=== PATIENT | female | born 1995 ===

== ENCOUNTER 2016-10-14 03:42 | Emergency (ER) | payer MEDICAID ==
[2016-10-14 04:09] VITALS: BMI 22.6
--- NOTE | 2016-10-14 04:40 | OBHP ---
Datetime: 10/14/2016 04:35 IP Adm Impression: Term, intrauterine IP Admit Plan: Discharge home Admit Comment, IP Provider: 21 y/o @ 39.5 wks recevies pnc at [facility] , missed many appo intments reports ctx pain that started early this morning every 2 minutes 4/10 intensity, deies lof, vb, +FM. pt reports this is her first baby and was concerned adn reports last visit [facility] in August. Pt st ate she has an appointment on Friday. 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 -all questions answered. -importance of complicance and regular care dw patient Pelvic Type - PN: Adequate Extremities - PN: Normal Abdomen - PN: Normal Back - PN: Normal Breast - PN: Not Done Lungs - PN: Normal Heart - PN: Normal Thyroid - PN: Not Done Neurologic - PN: Normal HEENT - PN: Normal General - PN: Normal Presentation-Admit: Vertex FHR - Baseline A Provider: 130 Membranes, Provider: Intact Contraction Comments Provider: 3-5 min Gestation - Est Wks by US: 39.5 EGA AdmitDate IP: 39.5 Vital Signs Provider: Reviewed; Within Normal Limits IP Chief Complaint: Uterine contractions NICHD Variability Prov Fetus A: Moderate 6-25bpm NICHD Accel Fetus A IP Provider: 15X15 FHR Category Provider Fetus A: Category I NICHD Decel Fetus A IP Provider: None Dilatation, Provider: 1 Effacement, Provider: 50 Station, Provider: -3 Genitourinary Exam: Normal DTRs - PN: Normal
--- NOTE | 2016-10-14 04:42 | OBDCSUM ---
Datetime: 10/14/2016 04:38 Discharged to, Provider: Home Follow up at, Provider: [facility] Disch Instr Activity: Normal activity Disch Instr Diet: Regular Discharge Instructions, Provider: Routine instructions given Discharge Time: 10/14/2016 04:40 Follow up in weeks, Provider: 10/18/2013 Disch Referrals: None Discharge Instruct Comment, Prov: see comments Disch Activity Restrictions: No exercising Discharge Comment, Provider: [facility] importnace of regular care d/w patient Discharge Diagnosis Prov Other: early labor, reactive NST
== END 2016-10-14 04:38 | disposition home or self-care (01) ==
LOC: C.EROB 03:42
DX: O75.89 Other specified complications of labor and delivery (principal); Z3A.39 39 weeks gestation of pregnancy

== ENCOUNTER 2017-04-27 14:00 | Emergency (ER) | payer MEDICAID ==
[2017-04-27 14:00] VITALS: BMI 22.9
[2017-04-27 14:22] VITALS: BP 108/71; PULSE 95; TEMP 98.6; O2SAT 100
--- NOTE | 2017-04-27 14:25 | C.PDOC ---
History Of Present Illness 21 year old female presents to the emergency department with a complaint of a dry cough, congestion, and runny nose x3 days. Denies fever. Time Seen by Provider: 04/27/17 14:00 Chief Complaint (Nursing): Cough, Cold, Congestion History Per: Patient History/Exam Limitations: no limitations Onset/Duration Of Symptoms: Days (x3 days) Past Medical History Reviewed: Historical Data, Nursing Documentation, Vital Signs Vital Signs: Last Vital Signs Temp 98.6 F 04/27/17 14:20 Pulse 95 H 04/27/17 14:20 Resp 16 04/27/17 14:42 BP 108/71 04/27/17 14:20 Pulse Ox 100 04/27/17 14:24 - Medical History PMH: No Chronic Diseases Surgical History: No Surg Hx - [facility] Procedures DELIVERY OF PRODUCTS OF CONCEPTION, EXTERNAL APPROACH (10/15/16) MONITORING OF POC, CARDIAC RATE, 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 (As per HPI, otherwise negative) Constitutional: Negative for: Fever ENT: Positive for: Nose Discharge, Nose Congestion Respiratory: Positive for: Cough Physical Exam - Physical Exam Appears: Well, Non-toxic, Toxic Skin: Normal Color, Warm, Dry Head: Atraumatic, Normacephalic Eye(s): bilateral: Normal Inspection Ear(s): Bilateral: Normal Nose: Normal Oral Mucosa: Moist Tongue: Normal Appearing Lips: Normal Appearing Teeth: Normal Dentition Gingiva: Normal Appearing Throat: Normal, No Erythema Cardiovascular: Rhythm Regular, No Murmur Respiratory: Normal Breath Sounds, No Decreased Breath Sounds, No Accessory Muscle Use, No Wheezing Neurological/Psych: Oriented x3 (Alert) ED Course And Treatment O2 Sat by Pulse Oximetry: 100 (RA) Pulse Ox Interpretation: Normal Medical Decision Making Medical Decision Making: Time: 1423 --Patient is stable for discharge with Rx for Flonase, Motrin 600 mg, and Tessalon Perles. Disposition - Disposition Disposition: HOME/ ROUTINE Disposition Time: 14:23 Condition: STABLE Additional Instructions: Follow up with your PMD/clinic within 1-2 days. Return to ED if feel worse. Prescriptions: Fluticasone Nasal [Flonase] 1 spr NS BID #1 spr Ibuprofen [Motrin Tab] 600 mg PO Q8 #30 tab Benzonatate [Tessalon Perles] 2 tab PO TID #60 sgl Instructions: Upper Respiratory Infection (ED) Forms: [email or web address] (Japanese) - Clinical Impression Clinical Impression: Upper respiratory infection
[2017-04-27 14:43] VITALS: RESP 16
== END 2017-04-27 14:42 | disposition home or self-care (01) ==
LOC: C.ER 14:00
DX: J06.9 Acute upper respiratory infection, unspecified (principal)

== ENCOUNTER 2017-07-29 14:51 | Emergency (ER) | payer MEDICAID ==
[2017-07-29 14:58] VITALS: BMI 22.6
[2017-07-29 15:01] VITALS: O2SAT 100
[2017-07-29 16:54] LABS: BASO # 0.1 K/uL (0.0-0.2); BASO % 0.5 % (0.0-2.0); EOS % 0.2 % (0.0-4.0); HEMOGLOBIN 12.8 g/dL (11.0-16.0); LYMPH # 1.5 K/uL (1.0-4.3); LYMPH % 13.8 % (20.0-40.0); MEAN CELL VOLUME 81.4 fL (81.0-99.0); MEAN CORPUSCULAR HEMOGLOBIN 27.8 pg (27.0-31.0); MEAN CORPUSCULAR HGB CONC 34.2 g/dL (33.0-37.0); MEAN PLATELET VOLUME 8.3 fL (7.2-11.7); MONO # 0.4 K/uL (0.0-0.8); MONO % 4.1 % (0.0-10.0); NEUT # 8.6 K/uL (1.8-7.0); NEUT % 81.4 % (50.0-75.0); NRBC % 0.1 % (0.0-2.0); RBC 4.61 Mil/uL (3.80-5.20); RED CELL DISTRIBUTION WIDTH 15.3 % (11.5-14.5); WHITE BLOOD COUNT 10.6 K/uL (4.8-10.8)
[2017-07-29 17:01] LABS: SQUAMOUS EPITHIAL 20 /hpf (0-5); URINE BACTERIA FEW (<OCC); URINE BILIRUBIN NEGATIVE (NEGATIVE); URINE BLOOD 1+ (NEGATIVE); URINE CALCIUM OXALATE CRYSTALS RARE /hpf (<OCC); URINE CLARITY Hazy (Clear); URINE COLOR Amber (YELLOW); URINE GLUCOSE (UA) NORMAL (Normal); URINE LEUKOCYTE ESTERASE 3+ Leu/uL (Negative); URINE PROTEIN 2+ mg/dL (NEGATIVE); URINE UROBILINOGEN NORMAL mg/dL (0.2-1.0)
[2017-07-29] MEDS ORDERED: Lactated Ringer's 1,000 ML IV ONE (17:06)
[2017-07-29 17:09] LABS: ALB/GLOB RATIO 1.1 (1.0-2.1); ALBUMIN 4.1 g/dL (3.5-5.0); ALT/SGPT 14 U/L (9-52); AST/SGOT 19 U/L (14-36); CALCIUM 8.8 mg/dl (8.6-10.4); GFR AFRICAN-AMERICAN > 60; GFR NON-AFRICAN AMERICAN > 60; LIPASE 57 U/L (23-300)
[2017-07-29 17:10] LABS: BLOOD UREA NITROGEN 6 mg/dL (7-17)
[2017-07-29] MEDS ORDERED: Lactated Ringer's 1,000 ML ONE (17:18)
--- NOTE | 2017-07-29 17:32 | C.PDOC ---
History Of Present Illness 22yo female, presents to ED for evaluation of diffuse abdominal pain and vomiting for the past 1 week. Patient denies any associated diarrhea, fever, vaginal discharge or bleeding, chest pain, or sob. She has not taken any medications for her symptoms. Time Seen by Provider: 07/29/17 15:43 Chief Complaint (Nursing): Abdominal Pain History Per: Patient History/Exam Limitations: no limitations Onset/Duration Of Symptoms: Days Current Symptoms Are (Timing): Still Present Location Of Pain/Discomfort: Diffuse Associated Symptoms: Vomiting. 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 Constitutional: Negative for: Fever, Chills Gastrointestinal: Positive for: Vomiting, Abdominal Pain. Negative for: Nausea , Diarrhea Genitourinary: Negative for: Dysuria, Frequency, Hematuria Physical Exam - Physical Exam Appears: Non-toxic, Other (nauseous) Skin: Normal Color, Warm, Dry Head: Atraumatic, Normacephalic Eye(s): bilateral: Normal Inspection, EOMI Nose: Normal Oral Mucosa: Moist Neck: Normal ROM, Supple Chest: Symmetrical Cardiovascular: Rhythm Regular Respiratory: Normal Breath Sounds Gastrointestinal/Abdominal: Bowel Sounds, Soft, Tenderness (diffuse) Back: Normal Inspection Extremity: Normal ROM Neurological/Psych: Oriented x3 ED Course And Treatment - Laboratory Results Result Diagrams: 07/29/17 16:49 07/29/17 16:49 O2 Sat by Pulse Oximetry: 100 (RA) Pulse Ox Interpretation: Normal Progress Note: Urinalysis results evaluated, which indiated + HCG. Patient reports her nasuea has improved after the medication. On re-evaluation, pt notes she feels better. Tolerating PO. No abd pain. Afebrile. No vaginal bleeding. Pt was given results of labs and US and instructed follow up with OBGYN in 2-3 days for re-evaluation. Case discussed with Dr Esteves, agreed upon plan and discharge. Disposition - Disposition Disposition: HOME/ ROUTINE Disposition Time: 18:44 Condition: STABLE Additional Instructions: Follow up with your OBGYN/ SURG NURSE in 2-3 days for repeat evaluation. Take medications as prescribed. Return to the emergency department at any time if symptoms persist or worsen. Prescriptions: Nitrofurantoin Macrocrystals [Macrobid] 1 cap PO BID #14 cap Multivit/Folic Acid/I [ Plus] 1 tab PO DAILY #30 tab Instructions: Hyperemesis Gravidarum Forms: [employer] (Nepali) - Clinical Impression Clinical Impression: Vomiting, , UTI (urinary tract infection) - PA / FACILITIES OPERATOR / Resident Statement MD/DO has reviewed & agrees with the documentation as recorded. - Scribe Statement The provider has reviewed the documentation as recorded by the Scribe (Sandy Huff) Provider Attestation: All medical record entries made by the Scribe were at my direction and personally dictated by me. I have reviewed the chart and agree that the record accurately reflects my personal performance of the history, physical exam, medical decision making, and the department course for this patient. I have also personally directed, reviewed, and agree with the discharge instructions and disposition.
--- NOTE | 2017-07-29 18:52 | US ---
PROCEDURE: OB Pelvic Ultrasound HISTORY: pain COMPARISON: None available. FINDINGS: UTERUS: Intrauterine gestation identified. . CRL measures 7 mm, equal to 6 weeks 4 days. Gestational sac diameter measures 23 mm, equal to 6 weeks 4 days. age (Ultrasound estimated): 6 weeks 5 days Date of delivery (Ultrasound estimated) : 03/19/2018 Heart rate: 0 bpm. Jessica-gestational hemorrhage: Moderate. Largest subchorionic hemorrhage measures 4.2 x 1.0 x 3.5 cm. 3 mm yolk sac visualized. Uterus measures 10.3 x 6.9 x 7.8 cm. No mass CERVIX: Long and closed. No cervical abnormality seen. RIGHT OVARY: Measures 3.2 x 1.5 x 2.4 cm. No mass. Normal flow. LEFT OVARY: Measures 4.5 x 3.1 x 4.4 cm. No mass. Normal flow. Probable corpus luteum cyst, 3.0 x 2.6 x 3.4 cm. Characteristic peripheral hypervascularity noted. FREE FLUID: Small in cul-de-sac and left adnexal region OTHER FINDINGS: None. IMPRESSION: Single intrauterine gestation identified, approximately 6 weeks 5 days gestational age. No detectable cardiac activity. Followup with repeat transvaginal pelvic ultrasound and serial beta HCG evaluation is advised. There is a moderate subchorionic hemorrhage. There is a 3.4 cm left ovarian corpus luteum.
[2017-07-29 19:06] VITALS: BP 111/70; PULSE 75; RESP 18; TEMP 97.9
== END 2017-07-29 19:06 | disposition home or self-care (01) ==
LOC: C.ER 14:51
DX: O23.41 Unspecified infection of urinary tract in pregnancy, first trimester (principal); O21.9 Vomiting of pregnancy, unspecified; Z3A.01 Less than 8 weeks gestation of pregnancy
CPT/HCPCS: 76805; 76817; 80053; 81001; 83690; 84702; 84703; 85025; 86850; 86900; 87086; 96361; 96374; 96375; 99284; J1885; J2405; J7120